=== PATIENT | male | born 1990 | race Caucasian/White ===

== ENCOUNTER 2020-05-18 22:02 | Emergency (ER) | payer OTHER ==
[~2020-05-18] VITALS: Ht 172.7 cm; Wt 105.7 kg
[2020-05-18 22:09] VITALS: Ht 172.7 cm; Wt 105.7 kg
[2020-05-18 22:55] VITALS: BP 143/97
== END 2020-05-18 22:55 | disposition home or self-care (01) ==
LOC: ED 22:02
DX: M54.5 Low back pain (principal)